=== PATIENT | female | born 1930 | race Two or more races ===

== ENCOUNTER 2016-05-05 11:13 | Emergency (ER) | payer OTHER ==
[~2016-05-05] VITALS: Ht 149.9 cm; Wt 54.1 kg
[~2016-05-05 11:13] MED LIST: ADULT LOW DOSE81 M1 PO; AMLODIPINE BES2.5 MG PO; BACTRIM,SEPT1 TABLET PO; BISOPROLOL FUMAR5 M1 PO; CALCIUM + VITA1 EACH PO; CALCIUM 600 +1 EAC7 PO; CELEXA20 MG PO; CENTRUM SILVER1 EAC3 PO; CENTRUM SILVER1 EACH PO; CITALOPRAM HBR20 M1 PO; COLACE100 MG PO; COSOPT 0.5200 DROP/1; COSOPT EYE DROPS5 ML RIGHT EYE; FLORASTOR250 MG PO; FOSAMAX70 MG PO; Keflex PO; LISINOPRIL10 MG PO; LO-DOSE ASPIRIN81 M1 PO; Levaquin PO; MIRALAX255 GM PO; NORVASC5 MG PO; PANTOPRAZOLE SO40 MG PO; PRINIVIL20 MG PO; SEROQUEL100 MG PO; SEROQUEL50 MG PO; SPIRIVA1 INHALATI IH; TRIAMTERENE-HC1 EAC1 PO; XALATAN2.5 ML BOTH EYES; triam/hctz PO
[2016-05-05 12:45] VITALS: BP 151/71
== END 2016-05-05 12:51 | disposition home or self-care (01) ==
LOC: EME → EDBD 11:13 → EME 12:51
DX: T18.198A Other foreign object in esophagus causing other injury, initial encounter (principal); X58.XXXA Exposure to other specified factors, initial encounter; I10 Essential (primary) hypertension; J45.909 Unspecified asthma, uncomplicated; Z79.82 Long term (current) use of aspirin
CPT/HCPCS: 99281; 99283

== ENCOUNTER 2016-05-28 09:44 | Inpatient (IN) | payer OTHER ==
[~2016-05-28] VITALS: Ht 144.8 cm; Wt 52.5 kg
[2016-05-28 10:34] LABS: EOSINOPHIL (%) 0.6 % (0-5); EOSINOPHIL COUNT 0.1 K/uL (0-0.3); HEMATOCRIT 39.3 % (36.0-46.0); IMMATURE GRANULOCYTE (%) 0.2 % (0.0-0.7); IMMATURE GRANULOCYTE COUNT 0.2 K/uL; LYMPHOCYTE COUNT 1.4 K/uL (1.0-2.8); MCH 29.2 PG (29.0-34.0); MCHC 34.4 G/DL (30.0-36.0); MCV 84.9 FL (83-99); MEAN PLAT.VOLUME 10.6 uM^3 (9.5-12.4); MONOCYTE (%) 8.7 % (3-12); NEUTROPHIL COUNT 8.4 K/uL (1.8-6.4); PLATELET COUNT 178 K/uL (156-360); RBC DIS.WIDTH-CV 11.7 % (11.8-14.6); RBC DIS.WIDTH-SD 35.1 % (39-53); RED BLOOD COUNT 4.63 M/uL (3.80-5.20); WHITE BLOOD COUNT 10.9 K/uL (4.1-10.2)
[2016-05-28 10:44] LABS: CHLORIDE 101 mEq/L (99-109); POTASSIUM 3.2 mEq/L (3.7-5.4); SODIUM 137 mEq/L (136-147)
[2016-05-28 10:46] LABS: GLUCOSE 119 mg/dL (70-99)
[2016-05-28 10:47] LABS: ANION GAP 9 MEQ/L (2-14); INTER. NORMALIZED RATIO 1.1; PROTHROMBIN TIME 11.4 (9.2-11.2)
[2016-05-28 10:50] LABS: GFR ESTIMATE (CALCULATED) > 59 mL/min/
[2016-05-28 10:51] LABS: UREA NITROGEN (BUN) 7 mg/dL (9-23)
[2016-05-28 15:55] VITALS: BP 180/75
[2016-05-28 16:37] LABS: MCV 87.4 FL (83-99)
[2016-05-28] MEDS ORDERED: NORVASC5 MG PO (16:55)
[2016-05-28] MEDS ORDERED: TRAZODONE HCL50 MG PO (16:58)
[2016-05-28] MEDS ORDERED: COMBIVENT RESPIM4 GM IH (16:59)
[2016-05-28] MEDS ORDERED: CALCIUM + VITA1 EAC2 PO (17:00)
[2016-05-28 17:10] VITALS: BP 187/75
[2016-05-28 19:18] VITALS: BP 173/73
[2016-05-29 00:40] LABS: HEMATOCRIT 35.4 % (36.0-46.0); MCV 85.9 FL (83-99)
[2016-05-29 04:25] VITALS: BP 123/58
[2016-05-29 05:33] LABS: HEMATOCRIT 35.6 % (36.0-46.0); MCH 27.8 PG (29.0-34.0); MCHC 31.7 G/DL (30.0-36.0); MCV 87.5 FL (83-99); MEAN PLAT.VOLUME 10.7 uM^3 (9.5-12.4); PLATELET COUNT 171 K/uL (156-360); RBC DIS.WIDTH-SD 38.5 % (39-53); RED BLOOD COUNT 4.07 M/uL (3.80-5.20); WHITE BLOOD COUNT 13.3 K/uL (4.1-10.2)
[2016-05-29 05:56] LABS: ALKALINE PHOSPHATASE 46 IU/L (3-129); ANION GAP 8 MEQ/L (2-14); CHLORIDE 108 MEQ/L (99-109); GFR ESTIMATE (CALCULATED) > 59 mL/min/; POTASSIUM 3.5 MEQ/L (3.7-5.4); POTASSIUM 3.6 MEQ/L (3.7-5.4); SAMPLE HEMOLYSIS CHECK 0; SAMPLE ICTERIC CHECK 0; SAMPLE LIPEMIA CHECK 0; SODIUM 140 MEQ/L (136-147); TOTAL BILIRUBIN 0.4 MG/DL (0.0-1.0); UREA NITROGEN (BUN) 10 mg/dL (9-23)
[2016-05-29 06:05] LABS: GLUCOSE 78 mg/dL (70-99); GLUCOSE 79 mg/dL (70-99)
[2016-05-29 07:08] VITALS: BP 167/69
[2016-05-29 11:30] VITALS: BP 157/67
[2016-05-29 14:05] VITALS: BP 176/76
[2016-05-29 16:15] VITALS: BP 188/74
[2016-05-29 17:27] LABS: HEMATOCRIT 38.8 % (36.0-46.0); MCV 89.4 FL (83-99)
[2016-05-29 23:51] VITALS: BP 122/56
[2016-05-30 01:12] LABS: HEMATOCRIT 36.5 % (36.0-46.0); MCV 87.7 FL (83-99)
[2016-05-30 03:55] VITALS: BP 125/62
[2016-05-30 07:33] VITALS: BP 110/62
[2016-05-30 07:44] LABS: HEMATOCRIT 37.5 % (36.0-46.0); MCH 28.1 PG (29.0-34.0); MCHC 31.7 G/DL (30.0-36.0); MCV 88.4 FL (83-99); MEAN PLAT.VOLUME 10.8 uM^3 (9.5-12.4); PLATELET COUNT 164 K/uL (156-360); RBC DIS.WIDTH-CV 12.2 % (11.8-14.6); RBC DIS.WIDTH-SD 39.2 % (39-53); RED BLOOD COUNT 4.24 M/uL (3.80-5.20); WHITE BLOOD COUNT 8.9 K/uL (4.1-10.2)
[2016-05-30 08:14] LABS: ANION GAP 7 MEQ/L (2-14); CHLORIDE 102 MEQ/L (99-109); GFR ESTIMATE (CALCULATED) > 59 mL/min/; POTASSIUM 3.5 MEQ/L (3.7-5.4); SAMPLE HEMOLYSIS CHECK 0; SAMPLE ICTERIC CHECK 0; SAMPLE LIPEMIA CHECK 0; SODIUM 136 MEQ/L (136-147); UREA NITROGEN (BUN) 8 mg/dL (9-23)
[2016-05-30 08:15] LABS: GLUCOSE 150 mg/dL (70-99)
[2016-05-30 10:53] VITALS: BP 111/62
[2016-05-30 15:12] VITALS: BP 154/67
[2016-05-30 20:16] VITALS: BP 137/60
[2016-05-31] VITALS: BP 150/69
[2016-05-31 04:00] VITALS: BP 158/68
[2016-05-31 07:52] VITALS: BP 153/67
[2016-05-31 11:16] VITALS: BP 102/49
[2016-05-31 15:14] VITALS: BP 114/58
[2016-05-31 15:21] LABS: ADD MIUA? YES; BILIRUBIN NEGATIVE; BLOOD SMALL; COLOR YELLOW ((YELLOW)); GLUCOSE (STRIP) NEGATIVE; KETONES NEGATIVE; LEUKOCYTES SMALL; NITRITE NEGATIVE; PROTEIN (STRIP) NEGATIVE; SPECIFIC GRAVITY 1.006 (1.000-1.030); UROBILINOGEN 0.2 MG/DL (0.2-1.0)
[2016-05-31 15:38] LABS: BACTERIA NONE SEEN /HPF; EPITHELIAL CELLS 1+ /HPF; MUCUS TRACE /LPF; RED BLOOD CELLS 30-40 /HPF (0-5); UCUL ADDED? NO
[2016-05-31 20:00] VITALS: BP 136/65
[2016-06-01] VITALS: BP 133/62
[2016-06-01 03:41] VITALS: BP 143/63
[2016-06-01 06:48] LABS: EOSINOPHIL (%) 0.5 % (0-5); EOSINOPHIL COUNT 0.1 K/uL (0-0.3); HEMATOCRIT 41.7 % (36.0-46.0); IMMATURE GRANULOCYTE (%) 0.1 % (0.0-0.7); LYMPHOCYTE COUNT 2.6 K/uL (1.0-2.8); MCHC 32.6 G/DL (30.0-36.0); MONOCYTE (%) 12.1 % (3-12); MONOCYTE COUNT 1.2 K/uL (0-0.8); NEUTROPHIL (%) 61.2 % (45-76); NEUTROPHIL COUNT 6.2 K/uL (1.8-6.4); RBC DIS.WIDTH-SD 37.5 % (39-53); RED BLOOD COUNT 4.85 M/uL (3.80-5.20); WHITE BLOOD COUNT 10.1 K/uL (4.1-10.2)
[2016-06-01 07:20] LABS: MEAN PLAT.VOLUME 11.1 uM^3 (9.5-12.4)
[2016-06-01 07:24] LABS: PLATELET COUNT 220 K/uL (156-360)
[2016-06-01 07:27] LABS: ANION GAP 8 MEQ/L (2-14); CHLORIDE 99 MEQ/L (99-109); GFR ESTIMATE (CALCULATED) > 59 mL/min/; POTASSIUM 3.1 MEQ/L (3.7-5.4); SAMPLE HEMOLYSIS CHECK 0; SAMPLE ICTERIC CHECK 0; SAMPLE LIPEMIA CHECK 0; SODIUM 137 MEQ/L (136-147); UREA NITROGEN (BUN) 8 mg/dL (9-23)
[2016-06-01 07:28] LABS: GLUCOSE 92 mg/dL (70-99)
[2016-06-01 07:59] VITALS: BP 141/64
[2016-06-01 09:15] LABS: MAGNESIUM 1.9 mg/dl (1.3-2.7)
[2016-06-01 16:15] VITALS: BP 134/69
[2016-06-01 20:11] VITALS: BP 115/56
[2016-06-02 00:09] VITALS: BP 111/52
[2016-06-02 03:57] VITALS: BP 120/56
[2016-06-02 06:49] LABS: EOSINOPHIL (%) 0.9 % (0-5); EOSINOPHIL COUNT 0.1 K/uL (0-0.3); IMMATURE GRANULOCYTE (%) 0.1 % (0.0-0.7); LYMPHOCYTE COUNT 2.2 K/uL (1.0-2.8); MCH 28.1 PG (29.0-34.0); MCHC 32.4 G/DL (30.0-36.0); MEAN PLAT.VOLUME 10.6 uM^3 (9.5-12.4); MONOCYTE (%) 13.8 % (3-12); MONOCYTE COUNT 1.1 K/uL (0-0.8); NEUTROPHIL (%) 57.5 % (45-76); NEUTROPHIL COUNT 4.6 K/uL (1.8-6.4); PLATELET COUNT 177 K/uL (156-360); RBC DIS.WIDTH-CV 12.1 % (11.8-14.6); RBC DIS.WIDTH-SD 38.6 % (39-53); RED BLOOD COUNT 4.37 M/uL (3.80-5.20)
[2016-06-02 07:17] LABS: ALKALINE PHOSPHATASE 50 IU/L (3-129); ANION GAP 6 MEQ/L (2-14); CHLORIDE 105 MEQ/L (99-109); GFR ESTIMATE (CALCULATED) > 59 mL/min/; GLUCOSE 103 mg/dL (70-99); SAMPLE HEMOLYSIS CHECK 0; SAMPLE ICTERIC CHECK 0; SAMPLE LIPEMIA CHECK 0; SODIUM 139 MEQ/L (136-147); UREA NITROGEN (BUN) 11 mg/dL (9-23)
[2016-06-02 07:18] LABS: POTASSIUM 3.8 MEQ/L (3.7-5.4); TOTAL BILIRUBIN 0.5 MG/DL (0.0-1.0)
[2016-06-02 07:39] VITALS: BP 135/60
[2016-06-02 11:03] VITALS: BP 124/55
[2016-06-02 15:21] VITALS: BP 129/59
[2016-06-02 19:58] VITALS: BP 127/65
[2016-06-03 04:00] VITALS: BP 153/65
[2016-06-03 07:18] LABS: HEMATOCRIT 39.2 % (36.0-46.0); MCH 28.1 PG (29.0-34.0); MCHC 32.4 G/DL (30.0-36.0); MCV 86.7 FL (83-99); MEAN PLAT.VOLUME 10.8 uM^3 (9.5-12.4); PLATELET COUNT 206 K/uL (156-360); RBC DIS.WIDTH-CV 12.2 % (11.8-14.6); RBC DIS.WIDTH-SD 38.8 % (39-53); RED BLOOD COUNT 4.52 M/uL (3.80-5.20); WHITE BLOOD COUNT 9.6 K/uL (4.1-10.2)
[2016-06-03 07:22] VITALS: BP 129/68
[2016-06-03] MEDS ORDERED: CIPROFLOXACIN500 M1 PO (08:09)
[2016-06-03] MEDS ORDERED: METRONIDAZOLE500 MG PO (08:10)
[2016-06-03] MEDS ORDERED: PROCARDIA20 MG PO (08:10)
== END 2016-06-03 13:22 | disposition home health service (06) | DRG 393 ==
LOC: EME → EDBD 09:44 → 5WEST 12:38 → EDOF 12:38 → 5WEST 15:46 → 5SOUTH 05-29 10:43 → 5WEST 05-29 10:43 → 5SOUTH 05-29 18:21
PROVIDERS: Emergency Medicine; Hospitalist; Internal Medicine Gastroenterology; Nurse Practitioner Adult Health
DX: K55.052 Diffuse acute (reversible) ischemia of intestine, part unspecified (principal); J96.01 Acute respiratory failure with hypoxia; K92.2 Gastrointestinal hemorrhage, unspecified; J44.1 Chronic obstructive pulmonary disease with (acute) exacerbation; J98.11 Atelectasis; M81.0 Age-related osteoporosis without current pathological fracture; E87.6 Hypokalemia; I10 Essential (primary) hypertension; K57.90 Diverticulosis of intestine, part unspecified, without perforation or abscess without bleeding; I47.9 Paroxysmal tachycardia, unspecified; I08.2 Rheumatic disorders of both aortic and tricuspid valves; I27.2 Other secondary pulmonary hypertension
CPT/HCPCS: 71010; 71020; 74177; 80048; 80053; 80069; 81003; 83735; 85014; 85018; 85025; 85027; 85610; 86850; 86900; 86901; 87493; 92610 GN; 93005; 93306; 94640; 94640 76; 94760; 94799; 97530 GO; 99202; 99281; 99285; G0378; J0360; J0696; J0744; J1956; J2270; J2405; J3475; J3480; J7030; J7050; J7512; S0028; S0030